=== PATIENT | female | born 1970 | race African-American/Black ===

== ENCOUNTER 2016-10-08 12:41 | Emergency (ER) | payer OTHER ==
[~2016-10-08] VITALS: Ht 157.5 cm; Wt 97.5 kg
[2016-10-08] MEDS ORDERED: ALBUTEROL SULF8.5 GM INH ×2 (12:54→14:14)
[2016-10-08] MEDS ORDERED: LAMICTAL150 MG ORAL (12:54)
[2016-10-08] MEDS ORDERED: ALBUTEROL2.5 MG/3 M INH (12:54)
[2016-10-08] MEDS ORDERED: OMEPRAZOLE40 M1 ORAL (12:54)
[2016-10-08] MEDS ORDERED: IBUPROFEN600 MG ORAL (12:54)
[2016-10-08] MEDS ORDERED: ZYRTEC10 MG ORAL (12:54)
[2016-10-08] MEDS ORDERED: QVAR7.3 GM INH (12:54)
[2016-10-08] MEDS ORDERED: PredniSONE 20mg tab ORAL ONE (13:00)
[2016-10-08] MEDS: Ipratropium 0.02% Inh Soln 2.5ml UD HHN SCH ×3 (13:04→13:46)
[2016-10-08] MEDS: Albuterol ud Inhalation HHN SCH ×3 (13:04→13:46)
[2016-10-08 13:06] VITALS: BP 105/72
[2016-10-08] MEDS ORDERED: PREDNISONE20 MG ORAL (14:14)
[2016-10-08] MEDS ORDERED: PROMETHAZINE-C118 M1 ORAL (14:14)
[2016-10-08] MEDS ORDERED: AMOXICILLIN500 MG ORAL (14:14)
[2016-10-08] MEDS ORDERED: ALBUTEROL2.5 MG/3 M HHN (14:14)
[2016-10-08] MEDS ORDERED: COMPACT COMPRE1 EACH MC (14:14)
--- NOTE | 2016-10-08 14:20 | Emergency Room Report ---
History of Present Illness General Chief Complaint: Dyspnea/Respdistress Source: Patient Present Illness HPI 46-year-old female presents ED complaining of wheezing and shortness of breath x2 days. Notes history of asthma. States that her nebulizer machine broke. Patient states she does not smoke but is surrounded by several smokers. Denies any chest pain. Denies any fevers or chills. States she feels very congested with pressure behind her ears. Pain is a throbbing 5/10, nonradiating. No other aggravating relieving factors. Denies any other associated symptoms Allergies: Coded Allergies: METRONIDAZOLE (Verified Allergy, Unknown, 10/08/16) Uncoded Allergies: SULFA (Allergy, Unknown, 10/08/16) Patient History Past Medical History: asthma, GERD Past Surgical History: none Pertinent Family History: none Social History: Denies: alcohol use, drug use, smoking Last Menstrual Period: Hyst Now: No Immunizations: UTD Reviewed Nursing Documentation: PMH: Agreed, PSxH: Agreed Nursing Documentation-PMH Hx Asthma: Yes Hx Gastrointestinal Problems: Yes - acid reflux Review of Systems All Other Systems: negative except mentioned in HPI Physical Exam Vital Signs Date Time Temp Pulse Resp B/P Pulse Ox O2 Delivery O2 Flow Rate FiO2 10/08/16 12:47 99.1 107 22 105/72 98 Room Air Sp02 EP Interpretation: reviewed, normal General Appearance: no apparent distress, alert, GCS 15, non-toxic Head: normocephalic Eyes: bilateral eye PERRL, bilateral eye normal inspection ENT: hearing grossly normal, normal pharynx, no angioedema, normal voice Neck: full range of motion, supple/symm/no masses Respiratory: wheezing Cardiovascular #1: regular rate, rhythm, no edema Gastrointestinal: normal inspection Rectal: deferred Genitourinary: no CVA tenderness Musculoskeletal: normal inspection Neurologic: alert, oriented x3, responsive, motor strength/tone normal, sensory intact, speech normal Psychiatric: normal inspection Skin: normal inspection Lymphatic: normal inspection Medical Decision Making Diagnostic Impression: Primary Impression: COPD (chronic obstructive pulmonary disease) Qualified Codes: J44.9 - Chronic obstructive pulmonary disease, unspecified ER Course Hospital Course 46-year-old female presents to ED complaining of cough, congestion, wheezing Differential diagnoses include: URI, bronchitis, asthma/COPD, pneumonia Clinical course Patient placed on stretcher. After initial history and physical I ordered prednisone and nebulizer treatment. Upon reassessment patient states cough and symptoms have improved. Findings consistent with COPD bronchitis; will require treatment with abx Diagnosis - COPD Stable and discharged home with prescriptions for Rx prednisone, amoxicillin, nebulizer, cough syrup, albuterol. Instructed to followup with PMD. Return to ED if symptoms recur or worsen Last Vital Signs Date Time Temp Pulse Resp B/P Pulse Ox O2 Delivery O2 Flow Rate FiO2 10/08/16 13:16 95 20 100 Room Air 10/08/16 13:06 99.1 105/72 Status: improved Disposition: HOME, SELF-CARE Condition: Stable Scripts Codeine/Promethazine Hcl* (PROMETHAZINE-CODEINE SYRUP*) 118 Ml Syrup 5 ML ORAL Q6H Y for For Cough, #118 ML 0 Refills Prov: KEMI MOSCOSO M.D. 10/08/16 Albuterol Sulfate* (ALBUTEROL SULFATE HHN*) 2.5 Mg/3 Ml Vial.neb 2.5 MG HHN Q4H Y for Shortness of Breath, #25 VIAL Prov: KEMI MOSCOSO M.D. 10/08/16 Nebulizer (Compact Compressor Nebulizer) 1 Each Each 1 EA MC, #1 Prov: KEMI MOSCOSO M.D. 10/08/16 Amoxicillin* (AMOXIL*) 500 Mg Capsule 500 MG ORAL THREE TIMES A DAY, #21 CAP Prov: KEMI MOSCOSO M.D. 10/08/16 Prednisone* (PREDNISONE*) 20 Mg Tablet 40 MG ORAL DAILY, #10 TAB Prov: KEMI MOSCOSO M.D. 10/08/16 Albuterol Sulfate* (ALBUTEROL SULFATE MDI*) 8.5 Gm Hfa.aer.ad 2 PUFF INH Q4H Y for cough/wheezing, #1 EA 0 Refills Prov: KEMI MOSCOSO M.D. 10/08/16 Patient Instructions: Chronic Obstructive Pulmonary Disease Exacerbation KEMI MOSCOSO M.D. Oct 08, 2016 14:20
[2016-10-08 17:34] VITALS: BP 105/72
== END 2016-10-08 14:45 | disposition home or self-care (01) ==
LOC: EMR 12:53
DX: J44.9 Chronic obstructive pulmonary disease, unspecified (principal); R06.02 Shortness of breath; Z77.22 Contact with and (suspected) exposure to environmental tobacco smoke (acute) (chronic); J45.909 Unspecified asthma, uncomplicated; K21.9 Gastro-esophageal reflux disease without esophagitis
CPT/HCPCS: 94640; 99284

== ENCOUNTER 2016-10-09 16:55 | Emergency (ER) | payer OTHER ==
[~2016-10-09] VITALS: Ht 157.5 cm; Wt 97.5 kg
[~2016-10-09 16:55] MED LIST: ALBUTEROL SULF8.5 GM INH; ALBUTEROL2.5 MG/3 M HHN; ALBUTEROL2.5 MG/3 M INH; AMOXICILLIN500 MG ORAL; COMPACT COMPRE1 EACH MC; IBUPROFEN600 MG ORAL; LAMICTAL150 MG ORAL; OMEPRAZOLE40 M1 ORAL; PREDNISONE20 MG ORAL; PROMETHAZINE-C118 M1 ORAL; QVAR7.3 GM INH; ZYRTEC10 MG ORAL
[2016-10-09 17:03] VITALS: BP 113/66
--- NOTE | 2016-10-09 18:32 | Emergency Room Report ---
History of Present Illness General Chief Complaint: Upper Respiratory Illness Source: Patient (Maday Palumbo) Source: Patient (Keon Mccarthy) Present Illness HPI 46-year-old female presents emergency department complaining of wheezing, cough , shortness of breath x1 week. Patient was seen here in the emergency department yesterday diagnosed with COPD bronchitis was put on oral antibiotics. Patient states she's been taking steroids for the past 3 weeks no relief. Patient also states albuterol treatments at home do not provide relief. Patient was at primary care physician followup who told her to return to ER. Denies fevers, chills, Palpitations, LOC, AMS, dizziness, Changes in Vision, Sensation, paresthesias, or a sudden severe headache. (Maday Palumbo) HPI Patient's 46-year-old female presented after having increased difficulty breathing. Patient been seen at the emergency department yesterday. Patient had increased work of breathing. She gradual onset of symptoms. Patient had recently been started on steroids. Patient had not been having any fever. She finished a course of antibiotics approximately 2 weeks ago. The patient denied productive cough. (Keon Mccarthy) Allergies: Coded Allergies: METRONIDAZOLE (Verified Allergy, Unknown, 10/08/16) Uncoded Allergies: SULFA (Allergy, Unknown, 10/08/16) Patient History Past Medical History: see triage record Past Surgical History: none Pertinent Family History: none Last Menstrual Period: hysterectomy Reviewed Nursing Documentation: PMH: Agreed, PSxH: Agreed (Maday Palumbo) Past Medical History: see triage record Reviewed Nursing Documentation: PMH: Agreed, PSxH: Agreed (Keon Mccarthy) Nursing Documentation-PMH Past Medical History: No History, Except For Hx Asthma: Yes Hx Gastrointestinal Problems: Yes - acid reflux (Maday Palumbo P.ASamy) Review of Systems All Other Systems: negative except mentioned in HPI (Maday Palumbo) All Other Systems: negative except mentioned in HPI (Keon Mccarthy) Physical Exam Vital Signs Date Time Temp Pulse Resp B/P Pulse Ox O2 Delivery O2 Flow Rate FiO2 10/09/16 17:03 98.2 85 20 113/66 98 Room Air Sp02 EP Interpretation: reviewed, normal General Appearance: mild distress Respiratory: wheezing - moderate wheezing, other - pt. exhibits respiratory effort. difficulty with speaking full sentences. (Maday Palumbo) Sp02 EP Interpretation: reviewed, normal General Appearance: normal inspection, well appearing, no apparent distress, alert, GCS 15 Head: atraumatic ENT: normal ENT inspection, hearing grossly normal, normal voice Neck: normal inspection, full range of motion, supple, no bony tend Respiratory: normal inspection, lungs clear, normal breath sounds, no respiratory distress, no retraction, no wheezing Cardiovascular #1: regular rate, rhythm, no edema Gastrointestinal: normal inspection, normal bowel sounds, non tender, soft, no guarding, no hernia Genitourinary: no CVA tenderness Musculoskeletal: normal inspection, back normal, normal range of motion Neurologic: normal inspection, alert, responsive, speech normal Psychiatric: normal inspection, judgement/insight normal, mood/affect normal Skin: normal inspection, normal color, no rash (Keon Mccarthy) Medical Decision Making PA Attestation Dr. Mccarthy is my supervising Physician whom patient management has been discussed with. (Maday Palumbo) Diagnostic Impression: Primary Impression: Asthma with acute exacerbation Qualified Codes: J45.41 - Moderate persistent asthma with (acute) exacerbation ER Course This pt. has been signed out to supervising physician Dr. Mccarthy please review his note. (Maday Palumbo) ER Course Patient presented for shortness of breath.Differential included but was not limited to anemia, pneumonia, pneumothorax, myocardial infarction, pericardial effusion, congestive heart failure, acidosis. Because of complexity of patient' s case laboratory testing and imaging studies were ordered. The patient given breathing treatments as well as steroids. The patient was noted a continual difficulty breathing. Dr. Yeyo Alvarenga was contacted for transfer. Labs Test 10/09/16 18:55 White Blood Count 8.5 K/UL (4.8-10.8) Red Blood Count 4.71 M/UL (4.20-5.40) Hemoglobin 15.7 G/DL (12.0-16.0) Hematocrit 45.1 % (37.0-47.0) Mean Corpuscular Volume 96 FL (80-99) Mean Corpuscular Hemoglobin 33.4 PG (27.0-31.0) Mean Corpuscular Hemoglobin Concent 34.9 G/DL (32.0-36.0) Red Cell Distribution Width 12.2 % (11.6-14.8) Platelet Count 219 K/UL (150-450) Mean Platelet Volume 9.0 FL (6.5-10.1) Neutrophils (%) (Auto) 46.3 % (45.0-75.0) Lymphocytes (%) (Auto) 43.7 % (20.0-45.0) Monocytes (%) (Auto) 8.6 % (1.0-10.0) Eosinophils (%) (Auto) 0.4 % (0.0-3.0) Basophils (%) (Auto) 1.1 % (0.0-2.0) (Keon Mccarthy) Chest X-Ray Diagnostic Results EP Interpretation: Yes Findings: no consolidation, no effusion, no pneumothorax, no acute cardiopulmonary disease Number of Views: 1 (Keon Mccarthy) Last Vital Signs Date Time Temp Pulse Resp B/P Pulse Ox O2 Delivery O2 Flow Rate FiO2 10/09/16 17:03 85 20 Room Air 10/09/16 17:03 98.2 113/66 98 (Maday Palumbo) Status: unchanged (Keon Mccarthy) Disposition: ADMITTED INPATIENT Condition: Serious Signed Out To: Dr. Mccarthy (Maday Palumbo PSamyASamy) Referrals: [facility],REFERR[facility] (PCP) Maday Palumbo October 09, 2016 18:32 Keon Mccarthy October 09, 2016 19:25
[2016-10-09] MEDS: Albuterol ud Inhalation HHN SCH ×3 (18:36→19:11)
[2016-10-09] MEDS ORDERED: Ipratropium 0.02% Inh Soln 2.5ml UD HHN ONE (18:45)
[2016-10-09] MEDS ORDERED: Solu-MEDROL 125mg Inj IVP ONE (19:00)
[2016-10-09 19:19] LABS: BASOPHILS % (AUTO) 1.1 % (0.0-2.0); EOSINOPHILS % (AUTO) 0.4 % (0.0-3.0); LYMPHOCYTES % (AUTO) 43.7 % (20.0-45.0); MEAN CORPUSCULAR HEMOGLOBIN 33.4 PG (27.0-31.0); MEAN CORPUSCULAR HGB CONC 34.9 G/DL (32.0-36.0); MEAN CORPUSCULAR VOLUME 96 FL (80-99); MONOCYTES % (AUTO) 8.6 % (1.0-10.0); NEUTROPHILS % (AUTO) 46.3 % (45.0-75.0); PLATELET COUNT 219 K/UL (150-450); RED BLOOD COUNT 4.71 M/UL (4.20-5.40); RED CELL DISTRIBUTION WIDTH 12.2 % (11.6-14.8); WHITE BLOOD COUNT 8.5 K/UL (4.8-10.8)
[2016-10-09 19:21] VITALS: BP 113/82
[2016-10-09 19:32] LABS: ALANINE AMINOTRANSFERASE 19 U/L (3-33); ALBUMIN/GLOBULIN RATIO 1.3 (1.0-2.7); ANION GAP 20 (5-15); ASPARTATE AMINO TRANSFERASE 21 U/L (5-40); CALCIUM 9.4 mg/dL (8.6-10.2); CARBON DIOXIDE 22 mEQ/L (20-30); CHLORIDE 99 mEQ/L (98-107); CREATININE 0.9 mg/dL (0.5-0.9); GLOMERULAR FILTRATION RATE > 60 mL/min (>60); HEMOLYSIS 8; POTASSIUM 3.8 mEQ/L (3.4-4.9); SODIUM 141 mEQ/L (135-145); TOTAL PROTEIN 7.7 g/dL (6.6-8.7)
[2016-10-09 21:27] VITALS: BP 115/72
[2016-10-09 21:31] VITALS: BP 115/72
--- NOTE | 2016-10-10 10:33 | Diagnostic Imaging Report ---
Indication: Chest Pain Comparison: None A single view chest radiograph was obtained. Findings: Cardiomediastinal appearance is within normal limits for age. Pulmonary vascularity is appropriate. The diaphragmatic contour is smooth and costophrenic angles are sharp. No pleural effusions are identified. The bones are unremarkable. Impression: No acute findings
== END 2016-10-09 21:31 | disposition short-term general hospital (02) ==
LOC: EMR 17:34
DX: J45.901 Unspecified asthma with (acute) exacerbation (principal); Z88.2 Allergy status to sulfonamides; Z88.3 Allergy status to other anti-infective agents
CPT/HCPCS: 36415; 71010; 80053; 85025; 94640; 94664; 96374; 99285; J2930